=== PATIENT | female | born 1990 | race Two or more races ===

== ENCOUNTER 2021-05-27 17:27 | Emergency (ER) | payer OTHER ==
[2021-05-27 18:05] VITALS: BP 141/78; PULSE 60; TEMP 97.8; BMI 27.4
[2021-05-27] MEDS ORDERED: KETOROLAC TROMETHAMINE 60 MG/2 ML VIAL IM ONE (19:24)
[2021-05-27] MEDS ORDERED: KETOROLAC TROMETHAMINE 60 MG/2 ML VIAL ONE (19:33)
== END 2021-05-27 20:02 | disposition home or self-care (01) ==
LOC: JERFT 17:27
PROC: 3E023GC Introduction of Other Therapeutic Substance into Muscle, Percutaneous Approach (ICD-10-PCS; principal; 2021-05-27)
DX: M54.50 Low back pain, unspecified (principal)
CPT/HCPCS: 96372; 99284-25

== ENCOUNTER 2023-06-03 18:10 | Emergency (ER) | payer OTHER ==
[2023-06-03 18:29] VITALS: BP 124/80; PULSE 78; RESP 18; TEMP 98.4; BMI 31.3
[2023-06-03] MEDS ORDERED: SODIUM CHLORIDE 1,000 ML IV STA (18:46)
[2023-06-03] MEDS ORDERED: METOCLOPRAMIDE HCL INJECTION 10 MG/2 ML VIAL IVPUSH ONE (18:46)
[2023-06-03] MEDS ORDERED: ACETAMINOPHEN 1000 MG/100 ML BAG IVPB ONE (18:47)
[2023-06-03] MEDS ORDERED: ACETAMINOPHEN INJECTION 100 ML IVPB ONE (19:31)
[2023-06-03] MEDS ORDERED: METOCLOPRAMIDE HCL INJECTION 10 MG/2 ML VIAL ONE (19:31)
[2023-06-03 19:39] LABS: BASO % 0.4 % (0-2.0); EOS % 3.9 % (0-4.5); HEMATOCRIT 37.5 % (32.4-45.2); HEMOGLOBIN 12.3 GM/dL (10.7-15.3); LYMPH % 22.6 % (8-40); MCH 26.6 pg (25.7-33.7); MCHC 32.9 g/dl (32.0-36.0); MEAN CELL VOLUME 80.8 fl (80-96); MEAN PLT VOLUME 8.6 fl (7.5-11.1); MONO % 4.2 % (3.8-10.2); NEUT % 68.9 % (42.8-82.8); PLATELET COUNT 293 10^3/uL (134-434); RBC 4.64 M/mm3 (3.60-5.2); RDW 14.1 % (11.6-15.6); WHITE BLOOD COUNT 8.5 K/mm3 (4.0-10.0)
[2023-06-03 20:07] LABS: POTASSIUM 3.7 mmol/L (3.5-5.1)
[2023-06-03 20:10] LABS: ALBUMIN 3.4 g/dl (3.4-5.0); CALCIUM 8.9 mg/dL (8.5-10.1)
[2023-06-03 20:14] LABS: CREATININE 0.8 mg/dL (0.55-1.3)
[2023-06-03 20:15] LABS: BILIRUBIN,TOTAL 0.3 mg/dL (0.2-1)
[2023-06-03] MEDS ORDERED: KETOROLAC TROMETHAMINE 30 MG/1 ML VIAL IVPUSH ONE (20:20)
[2023-06-03] MEDS ORDERED: KETOROLAC TROMETHAMINE 30 MG/1 ML VIAL ONE (20:30)
== END 2023-06-03 21:02 | disposition home or self-care (01) ==
LOC: JER 18:10
PROC: 3E033NZ Introduction of Analgesics, Hypnotics, Sedatives into Peripheral Vein, Percutaneous Approach (ICD-10-PCS; principal; 2023-06-03)
PROC: 3E033GC Introduction of Other Therapeutic Substance into Peripheral Vein, Percutaneous Approach (ICD-10-PCS; 2023-06-03)
PROC: 3E033GC Introduction of Other Therapeutic Substance into Peripheral Vein, Percutaneous Approach (ICD-10-PCS; 2023-06-03)
PROC: 3E0337Z Introduction of Electrolytic and Water Balance Substance into Peripheral Vein, Percutaneous Approach (ICD-10-PCS; 2023-06-03)
DX: M54.6 Pain in thoracic spine (principal); R11.0 Nausea; H53.8 Other visual disturbances; G43.909 Migraine, unspecified, not intractable, without status migrainosus; Z20.822 Contact with and (suspected) exposure to COVID-19
CPT/HCPCS: 0241U-QW; 36415; 70450-TC; 80053; 84703; 85025; 96361; 96374; 96375; 99284-25